=== PATIENT | male | born 1970 | race American Indian/Alaskan Native ===

== ENCOUNTER 2018-11-23 22:57 | Emergency (ER) | payer MEDICAID, OTHER ==
[2018-11-23 23:18] VITALS: RESP 18; TEMP 97.7; BMI 26.2
--- NOTE | 2018-11-23 23:41 | ED PDOC ---
Arrival/HPI - General Chief Complaint: Eye Problem Time Seen by Provider: 11/23/18 23:01 Historian: Patient - History of Present Illness Narrative History of Present Illness (Text): 11/23/18 23:41 48 yo M c/o redness and d/c to the R eye x 1 day. Denies any pain, decrease in vision, contact lens wear, FB, fever, URI, headache, trauma or injury. Past Medical History - Infectious Disease Hx of Infectious Diseases: None - Cardiac Hx Cardiac Arrhythmia: Yes - Pulmonary Hx Asthma: Yes - Neurological Hx Neurological Disorder: No - HEENT Hx HEENT Disorder: No - Renal Hx Renal Disorder: No - Endocrine/Metabolic Hx Endocrine Disorders: No - Hematological/Oncological Hx Blood Disorders: No - Integumentary Hx Dermatological Disorder: No - Musculoskeletal/Rheumatological Hx Musculoskeletal Disorders: No - Gastrointestinal Hx Gastrointestinal Disorders: No - Genitourinary/Gynecological Hx Genitourinary Disorders: No - Psychiatric Hx Psychophysiologic Disorder: No Hx Substance Use: No - Surgical History Other/Comment: hernia repair; hernia reduction - Anesthesia Hx Anesthesia: Yes Hx Anesthesia Reactions: No Hx Malignant Hyperthermia: No - Suicidal Assessment Feels Threatened In Home Enviroment: No Family/Social History Family/Social History: No Known Family HX Smoking Status: Never Smoked Hx Alcohol Use: No Hx Substance Use: No Allergies/Home Meds Allergies/Adverse Reactions: Allergies No Known Allergies Allergy (Verified 12/28/14 22:38) Review of Systems - Review of Systems Constitutional: absent: Fatigue, Fevers Eyes: Other (R eye redness). absent: Photophobia, Eye Pain ENT: absent: Sore Throat, Rhinorrhea, Sinus Congestion Respiratory: absent: Cough Physical Exam Vital Signs Temp Pulse Resp BP Pulse Ox 11/23/18 23:17 97.7 F 87 18 121/75 98 Temperature: Afebrile Blood Pressure: Normal Pulse: Regular Respiratory Rate: Normal Appearance: Positive for: Well-Appearing, Non-Toxic, Comfortable Pain Distress: None Mental Status: Positive for: Alert and Oriented X 3 - Systems Exam Head: Present: Atraumatic, Normocephalic Pupils: Present: PERRL Extroacular Muscles: Present: EOMI Conjunctiva: Present: Injected (R eye, no FB on cornea or under the lids, no abrasion), Other (+small amount of yellow d/c to the R eye, lids are normal without edema or erythema) Mouth: Present: Moist Mucous Membranes Neck: Present: Normal Range of Motion Neurological: Present: GCS=15, CN II-XII Intact Skin: Present: Warm, Dry, Normal Color. No: Rashes Psychiatric: Present: Alert, Oriented x 3, Normal Insight, Normal Concentration Medical Decision Making ED Course and Treatment: 11/23/18 23:39 Visual acuity R 20/20 L 20/20. Patient given tobramycin eye drops to the R eye. Diagnosis of conjunctivits d/w the patient, advised that it is contagious. Advised to follow up with primary care physician or eye doctor referral in 1-2 days without fail. Advised to take medication as prescribed. Return to the emergency room at any time for any new or worsening symptoms. Patient states he fully agrees with and understands discharge instructions. States that he agrees with the plan and disposition. Verbalized and repeated discharge instructions and plan. I have given the patient opportunity to ask any additional questions. - PA / [employer] / Resident Statement MD/DO has reviewed & agrees with the documentation as recorded. Disposition/Present on Arrival - Present on Arrival Any Indicators Present on Arrival: No History of DVT/PE: No History of Uncontrolled Diabetes: No Urinary Catheter: No History of Decub. Ulcer: No History Surgical Site Infection Following: None - Disposition Have Diagnosis and Disposition been Completed?: Yes Diagnosis: Acute conjunctivitis of right eye Disposition: HOME/ ROUTINE Disposition Time: 23:30 Patient Plan: Discharge Condition: STABLE Discharge Instructions (ExitCare): Conjunctivitis ([place]) (DC) Additional Instructions: Thank you for letting us take care of you today. You were treated for conjunctivitis. The emergency medical care you received today was directed at your acute symptoms. If you were prescribed any medication, please fill it and take as directed. It may take several days for your symptoms to resolve. Return to the Emergency Department if your symptoms worsen, do not improve, or if you have any other problems. Please contact your doctor in 2 days for re-evaluation and follow up / or call one of the physicians/clinics you have been referred to that are listed on the Patient Visit Information form that is included in your discharge packet. Bring any paperwork you were given at discharge with you along with any medications you are taking to your follow up visit. Our treatment cannot replace ongoing medical care by a primary care provider (PCP) outside of the emergency department. Thank you for allowing the [facility] team to be part of your care today. Prescriptions: Tobramycin 0.3% [Tobrex 0.3% Ophth Soln] 2 drop OD QID #1 bottle Referrals: Rommel Garcia MD [Staff Provider] - Follow up with primary Forms: [facility] (Malay), WORK NOTE
[2018-11-23] MEDS ORDERED: Tobramycin 0.3% OPHT SOLN OD STA (23:42)
[2018-11-24 00:16] VITALS: BP 120/74; PULSE 85; O2SAT 100
== END 2018-11-24 00:13 | disposition home or self-care (01) ==
LOC: ED 22:57
DX: H10.31 Unspecified acute conjunctivitis, right eye (principal)